=== PATIENT | female | born 1990 | race Caucasian/White ===

== ENCOUNTER 2017-03-14 12:07 | Emergency (ER) | payer OTHER ==
[~2017-03-14] VITALS: Ht 160 cm; Wt 44.5 kg
--- NOTE | ~2017-03-14 | EKG ---
[place] [address] [facility] [address] ELECTROCARDIOGRAM REPORT Name: KATHI RESENDIZ Room #: 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
[2017-03-14] MEDS ORDERED: NEXIUM40 MG PO (12:18)
[2017-03-14] MEDS ORDERED: LIALDA1.2 GM PO (12:18)
[2017-03-14] MEDS ORDERED: BENTYL 20 MG TA20 M1 PO (12:18)
[2017-03-14] MEDS ORDERED: ADDERALL XR 3030 MG PO (12:19)
[2017-03-14] MEDS ORDERED: FOLIC ACID1 MG PO (12:19)
[2017-03-14] MEDS ORDERED: CLORAZEPATE DI7.5 M2 PO (12:20)
[2017-03-14] MEDS ORDERED: VENTOLIN HFA 1818 GM INH (14:24)
[2017-03-14] MEDS ORDERED: PREDNISONE 20 M20 MG PO (14:24)
[2017-03-14] MEDS ORDERED: TESSALON PERLE100 MG PO (14:25)
[2017-03-14 15:03] VITALS: BP 120/67
== END 2017-03-14 15:04 | disposition home or self-care (01) ==
LOC: ER 12:07
DX: T48.6X5A Adverse effect of antiasthmatics, initial encounter (principal); J45.998 Other asthma; Z88.2 Allergy status to sulfonamides; F17.210 Nicotine dependence, cigarettes, uncomplicated; F10.99 Alcohol use, unspecified with unspecified alcohol-induced disorder; Y92.89 Other specified places as the place of occurrence of the external cause